=== PATIENT | male | born 1970 ===

== ENCOUNTER 2018-02-07 23:56 | Inpatient (IN) | payer OTHER ==
[2018-02-08 05:21] LABS: Bacteria,Urine 1+ /HPF (Negative); Bilirubin,Urine NEG (Negative); Blood,Urine LG (Negative); Color,Urine Yellow (Yellow); Urobilinogen,Urine < 2.0 mg/dL (<2.0)
[2018-02-08 05:22] LABS: Basophils % (Auto) 0.2 % (0.0-1.8); Eosinophils % (Auto) 0.5 % (0.0-4.3); Hematocrit 39.4 % (35.5-45.6); Hemoglobin 13.2 gm/dl (11.8-15.2); Lymphocytes # (Auto) 0.7 K/mm3 (1.2-5.4); Lymphocytes % (Auto) 10.3 % (13.4-35.0); Mean Corpuscular HGB Conc 34 % (32-34); Mean Corpuscular Hemoglobin 28 pg (28-32); Mean Corpuscular Volume 85 fl (84-94); Monocytes # (Auto) 0.6 K/mm3 (0.0-0.8); Monocytes % (Auto) 7.8 % (0.0-7.3); Platelet Count 187 K/mm3 (140-440); Red Blood Count 4.66 M/mm3 (3.65-5.03); Red Cell Distribution Width 16.2 % (13.2-15.2)
[2018-02-08 05:23] LABS: Protein,Urine >500 mg/dL (Negative); RBC,Urine > 182.0 /HPF (0.0-6.0)
[2018-02-08 06:26] LABS: Albumin 3.9 g/dL (3.9-5); Calcium 8.5 mg/dL (8.4-10.2)
[2018-02-08] MEDS ORDERED: ZOFRAN IV ONE (09:16)
[2018-02-08] MEDS ORDERED: NACL 0.9% 1000 ML 1,000 ML IV ONE (09:16)
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
[2018-02-08] MEDS: ROCEPHIN/NS 2 GM/100 ML 2 GM/100 ML BAG IV ONE ×2 (09:58→10:00)
--- NOTE | 2018-02-08 10:02 | Ultrasound Report ---
ULTRASOUND RENAL BILATERAL HISTORY: Acute renal injury. TECHNIQUE: transabdominal ultrasound with color Doppler interrogation. COMPARISON: none. FINDINGS: The kidneys are normal size, contour and position. There is increased renal cortical echotexture bilaterally consistent with nonspecific renal parenchymal disease. Corticomedullary differentiation is preserved. No evidence for cystic disease, mass, nephrolithiasis, hydronephrosis or perinephric fluid. The views of the bladder and the region of the ureters appear normal. IMPRESSION: Renal parenchymal disease.
[2018-02-08] MEDS ORDERED: SODIUM CHLORIDE FLUSH SYRINGE 10 ML IV PRN (10:51)
[2018-02-08] MEDS ORDERED: TYLENOL PO PRN (10:51)
--- NOTE | 2018-02-08 10:51 | History and Physical Report ---
History of Present Illness Date of examination: 02/08/18 Date of admission: 02/08/18 Chief complaint: N/V, abd pain History of present illness: This is a 47-year-old male presents with chief complaint of nausea and vomiting that has persisted over the past 24 hours. Patient reports vomitus of gastric contents. Patient also reported hematuria yesterday but less prominent today. Patient denies any fever or chills. No cough, like symptoms. No headache or visual disturbances. Patient does report abdominal discomfort with radiation to his lower back. Patient denies any dysuria or frequency. Past History Past Medical History: hypertension, hyperlipidemia Past Surgical History: No surgical history Social history: no significant social history Family history: no significant family history Medications and Allergies Allergies Allergy/AdvReac Type Severity Reaction Status Date / Time No Known Allergies Allergy Unverified 02/08/18 03:37 Home Medications Medication Instructions Recorded Confirmed Last Taken Type Amlodipine Besylate [Norvasc] 10 mg PO QDAY 02/08/18 02/08/18 02/07/18 History Ibuprofen [Ibu] 800 mg PO TID 02/08/18 02/08/18 02/07/18 History Simvastatin [Zocor] 40 mg PO DAILY 02/08/18 02/08/18 02/07/18 History Active Meds: Active Medications Sodium Chloride (Nacl 0.9% 1000 Ml) 1,000 mls @ 125 mls/hr IV DIRECT EVELIO Review of Systems All systems: negative Exam - Constitutional Vitals: Temp Pulse Resp BP Pulse Ox 98.9 F 92 H 20 141/89 98 02/08/18 07:31 02/08/18 07:31 02/08/18 07:31 02/08/18 07:31 02/08/18 07:31 General appearance: Present: no acute distress, well-nourished - EENT Eyes: Present: PERRL ENT: hearing intact, clear oral mucosa - Neck Neck: Present: supple, normal ROM - Respiratory Respiratory effort: normal Respiratory: bilateral: CTA - Cardiovascular Heart Sounds: Present: S1 & S2. Absent: rub, click - Extremities Extremities: pulses symmetrical, No edema Peripheral Pulses: within normal limits - Abdominal General gastrointestinal: Present: soft, non-tender, non-distended, normal bowel sounds Male genitourinary: Present: normal - Integumentary Integumentary: Present: clear, warm, dry - Musculoskeletal Musculoskeletal: gait normal, strength equal bilaterally - Psychiatric Psychiatric: appropriate mood/affect, intact judgment & insight - Neurologic Neurologic: CNII-XII intact, moves all extremities Results - Labs CBC & Chem 7: 02/08/18 05:03 02/08/18 05:03 Labs: Laboratory Last Values WBC 7.2 K/mm3 (4.5-11.0) 02/08/18 05:03 RBC 4.66 M/mm3 (3.65-5.03) 02/08/18 05:03 Hgb 13.2 gm/dl (11.8-15.2) 02/08/18 05:03 Hct 39.4 % (35.5-45.6) 02/08/18 05:03 MCV 85 fl (84-94) 02/08/18 05:03 MCH 28 pg (28-32) 02/08/18 05:03 MCHC 34 % (32-34) 02/08/18 05:03 RDW 16.2 % (13.2-15.2) H 02/08/18 05:03 Plt Count 187 K/mm3 (140-440) 02/08/18 05:03 Lymph % (Auto) 10.3 % (13.4-35.0) L 02/08/18 05:03 [place] % (Auto) 7.8 % (0.0-7.3) H 02/08/18 05:03 Eos % (Auto) 0.5 % (0.0-4.3) 02/08/18 05:03 Baso % (Auto) 0.2 % (0.0-1.8) 02/08/18 05:03 Lymph # 0.7 K/mm3 (1.2-5.4) L 02/08/18 05:03 [place] # 0.6 K/mm3 (0.0-0.8) 02/08/18 05:03 Eos # 0.0 K/mm3 (0.0-0.4) 02/08/18 05:03 Baso # 0.0 K/mm3 (0.0-0.1) 02/08/18 05:03 Seg Neutrophils % 81.2 % (40.0-70.0) H 02/08/18 05:03 Seg Neutrophils # 5.8 K/mm3 (1.8-7.7) 02/08/18 05:03 Sodium 138 mmol/L (137-145) 02/08/18 05:03 Potassium 3.6 mmol/L (3.6-5.0) 02/08/18 05:03 Chloride 98.6 mmol/L (98-107) 02/08/18 05:03 Carbon Dioxide 18 mmol/L (22-30) L 02/08/18 05:03 Anion Gap 25 mmol/L 02/08/18 05:03 BUN 50 mg/dL (9-20) H 02/08/18 05:03 Creatinine 10.4 mg/dL (0.8-1.5) H 02/08/18 05:03 Estimated GFR 5 ml/min 02/08/18 05:03 BUN/Creatinine Ratio 5 % 02/08/18 05:03 Glucose 119 mg/dL (75-100) H 02/08/18 05:03 Calcium 8.5 mg/dL (8.4-10.2) 02/08/18 05:03 Total Bilirubin 0.30 mg/dL (0.1-1.2) 02/08/18 05:03 AST 28 units/L (5-40) 02/08/18 05:03 ALT 20 units/L (7-56) 02/08/18 05:03 Alkaline Phosphatase 57 units/L (35-129) 02/08/18 05:03 Total Protein 7.1 g/dL (6.3-8.2) 02/08/18 05:03 Albumin 3.9 g/dL (3.9-5) 02/08/18 05:03 Albumin/Globulin Ratio 1.2 % 02/08/18 05:03 Lipase 16 units/L (13-60) 02/08/18 05:03 Urine Color Yellow (Yellow) 02/08/18 04:54 Urine Turbidity Slightly-cloudy (Clear) 02/08/18 04:54 Urine pH 6.0 (5.0-7.0) 02/08/18 04:54 Ur Specific [place] 1.007 (1.003-1.030) 02/08/18 04:54 Urine Protein >500 mg/dL (Negative) 02/08/18 04:54 Urine Glucose (UA) Neg mg/dL (Negative) 02/08/18 04:54 Urine Ketones Neg mg/dL (Negative) 02/08/18 04:54 Urine Blood Lg (Negative) 02/08/18 04:54 Urine Nitrite Neg (Negative) 02/08/18 04:54 Urine Bilirubin Neg (Negative) 02/08/18 04:54 Urine Urobilinogen < 2.0 mg/dL (<2.0) 02/08/18 04:54 Ur Leukocyte Esterase Mod (Negative) 02/08/18 04:54 Urine WBC (Auto) 50.0 /HPF (0.0-6.0) H 02/08/18 04:54 Urine RBC (Auto) > 182.0 /HPF (0.0-6.0) 02/08/18 04:54 U Epithel Cells (Auto) < 1.0 /HPF (0-13.0) 02/08/18 04:54 Urine Bacteria (Auto) 1+ /HPF (Negative) 02/08/18 04:54 Assessment and Plan Assessment and plan: Acute renal failure. Patient has a significantly elevated creatinine at 10.4. We will consult nephrology for further evaluation. Renal ultrasound has been ordered by ER physician. We'll also order CT of the abdomen and pelvis for further evaluation. Continue IV fluid hydration for now. Urinary tract infection. Patient with 50 WBCs on urinalysis. We will start Rocephin IV daily. Hematuria. CT of the abdomen and pelvis. Nephrology consultation pending. Consider urology evaluation. Abdominal pain. CT of the abdomen and pelvis. Hypertension. Resume antihypertensive medications. Persistent nausea and vomiting. Continue supportive care with IV fluid hydration and antibiotics.
--- NOTE | 2018-02-08 13:34 | Cat Scan Report ---
FINAL REPORT EXAM: CT ABDOMEN PELVIS WO CON HISTORY: ARF, flank, abd pain TECHNIQUE: CT examination of the ABDOMEN without IV contrast CT examination of the PELVIS without IV contrast PRIORS: None. FINDINGS: Normal noncontrast appearance of the liver, the gallbladder, adrenals, pancreas, and spleen. Normal caliber abdominal aorta and IVC. The normal-appearing kidney and visible left ureter. Nonspecific slight perinephric fat stranding on the right. No right renal calculus. Slight right hydronephrosis. 2 x 2 mm calculus in the distal right ureter at the level of the pelvic inlet. Very small fat containing umbilical hernia. No inguinal hernia. No retroperitoneal adenopathy. No evidence of mesenteric mass. Normal-appearing stomach and duodenum. No small bowel distention in the abdomen and pelvis. Slight prominence of the prostate gland with mass effect on the urinary bladder base. Otherwise normal-appearing urinary bladder. No definite seminal vesicle abnormality. Normal-appearing rectum and sigmoid colon. No gross ascites, free air, or colonic distention. Normal-appearing cecum and terminal ileum. Appendix not visualized. No pericecal inflammation. Scattered prominence of stool in the colon may reflect mild constipation. IMPRESSION: 2 x 2 mm calculus in the right ureter at the level of the pelvic inlet with slight right hydronephrosis Right perinephric fat stranding may be postobstructive edema. Differential includes right pyelonephritis Slight prominence of the prostate gland with mass effect on the urinary bladder base Scattered prominence of stool may reflect mild constipation
[2018-02-08] MEDS: PERCOCET 5/325 PO PRN ×2 (14:41→23:02)
[2018-02-08] MEDS: NACL 0.9% 1000 ML 1,000 ML IV SCH ×2 (14:41→23:02)
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
[2018-02-08] MEDS: ZOFRAN IV PRN ×2 (16:33→23:01)
[2018-02-08 21:27] LABS: Chloride, Urine 36.8 mmolL (110-250); Potassium, Urine 8.61 mmol/L
[2018-02-08] MEDS: HEPARIN SUB-Q SCH (23:01)
[2018-02-08] MEDS: SODIUM CHLORIDE FLUSH SYRINGE 10 ML IV SCH (23:01)
[2018-02-09 00:09] LABS: Uric Acid 14.2 mg/dL (3.5-7.6)
[2018-02-09 05:26] LABS: Basophils % (Auto) 0.2 % (0.0-1.8); Eosinophils # (Auto) 0.1 K/mm3 (0.0-0.4); Eosinophils % (Auto) 0.9 % (0.0-4.3); Hematocrit 37.5 % (35.5-45.6); Hemoglobin 12.5 gm/dl (11.8-15.2); Lymphocytes # (Auto) 1.1 K/mm3 (1.2-5.4); Lymphocytes % (Auto) 16.6 % (13.4-35.0); Mean Corpuscular HGB Conc 33 % (32-34); Mean Corpuscular Hemoglobin 28 pg (28-32); Mean Corpuscular Volume 84 fl (84-94); Monocytes # (Auto) 0.7 K/mm3 (0.0-0.8); Monocytes % (Auto) 10.2 % (0.0-7.3); Platelet Count 179 K/mm3 (140-440); Red Blood Count 4.46 M/mm3 (3.65-5.03)
[2018-02-09 05:42] LABS: Calcium 7.7 mg/dL (8.4-10.2)
[2018-02-09] MEDS ORDERED: MIRALAX 3350 PO ONE ×2 (06:04→10:00)
[2018-02-09] MEDS: ZOFRAN IV PRN ×2 (08:19→21:03)
--- NOTE | 2018-02-09 09:27 | Progress Note ---
Subjective Interval history: Patient was seen today for follow-up on multiple renal related issues Events of this hospitalization noted Worsening renal function Severe hyperuricemia hyperphosphatemia metabolic acidosis despite hydration Creatinine kinase under 1000, Patient denies having any chest pain pressure or shortness of breath Vitals labs intake output medications were reviewed Social history: Reviewed Allergies: Reviewed Family history: Reviewed Physical examination HEENT: Oral mucosa moist no pallor or icterus Neck: Supple no JVD Chest: Clear to auscultation anteriorly CVS: Regular rate and rhythm S1 and S2 heard Abdomen: Soft nontender no suprapubic masses no organomegaly appreciable Extremity: Dry skin less than 1+ peripheral edema Musculoskeletal: No joint effusion noted in knees and ankle Neurological: Alert awake Dermatology: No petechial rashes Psychiatry: No evidence of any agitation and aggression noted Assessment and plan Acute kidney injury: Worsening renal function patient symptomatic with nausea vomiting, continue with hydration Patient needs initiation of renal replacement therapy which will be done today with central venous catheter had a long discussion with patient about the pros and cons of therapy he is willing to proceed with that Metabolic acidosis: Requires correction, hemodialysis will help Hyperuricemia severe 14.2 uric acid, will need monitoring significant proteinuria, ,pyuria as well as hematuria, pending serological workup, possibility of RPGN needs to be ruled out Would like to give him at least 2-3 days of styloid while we are continuing with the workup His renal prognosis is guarded to poor at this time Kidney ultrasonogram: Shows bilateral increased echogenicity somewhat worrisome for underlying chronic kidney disease Severe hyperphosphatemia No evidence to suggest any significant rhabdomyolysis Etiology of renal failure clearly remains undefined at this time pending serological workup Patient possibly will also require kidney biopsy during this admission and I did discuss with him about that Patient has very poor comprehension of his overall health I took extensive amount of time to educated the patient about all his renal related issues need for dialysis, he does have very small stone and very mild hydronephrosis I am still skeptical about his overall prognosis with his renal failure Patient was adequately counseled and educated regarding multiple renal related issues Pertinent lab findings were discussed with patient, patient does exhibit good understanding of renal issues We'll continue to follow and make recommendation from renal standpoint Objective - Vital Signs Vital signs: Vital Signs - 12hr 02/09/18 02/09/18 00:00 05:50 Temperature 99.5 F 99.1 F Pulse Rate 86 87 Respiratory 20 20 Rate Blood Pressure 134/84 161/74 O2 Sat by Pulse 95 96 Oximetry - Lab 02/09/18 04:29 02/09/18 04:29 Most recent lab results Calcium 7.7 mg/dL (8.4-10.2) L 02/09/18 04:29 Phosphorus 7.30 mg/dL (2.5-4.5) H 02/08/18 21:47 Magnesium 3.10 mg/dL (1.7-2.3) H 02/08/18 21:47 Urine Sodium 66 mmol/L 02/08/18 10:51
--- NOTE | 2018-02-09 09:40 | Progress Note ---
Assessment and Plan Assessment and plan: Right ureteral stone with right hydronephrosis. CT abdomen and pelvis reveals 2 x 2 millimeter ureteral stone with right hydronephrosis. Urology has been consulted. Acute renal failure. Renal ultrasound revealed bilateral increased echogenicity somewhat worrisome for underlying chronic kidney disease. However , as above, obstructive uropathy also playing a role in renal failure. Nephrology following. Urinary tract infection. Patient with 50 WBCs on urinalysis. Continue Rocephin IV daily. Follow blood and urine cultures Hypertension. Resume antihypertensive medications. Persistent nausea and vomiting. Improved. Continue supportive care with IV fluid hydration and antiemetics History Interval history: No new issues overnight Hospitalist Physical - Constitutional Vitals: Temp Pulse Resp BP Pulse Ox 99.1 F 87 20 161/74 96 02/09/18 05:50 02/09/18 05:50 02/09/18 05:50 02/09/18 05:50 02/09/18 05:50 General appearance: Present: no acute distress, well-nourished - EENT Eyes: Present: PERRL, EOM intact ENT: hearing intact, clear oral mucosa, dentition normal - Neck Neck: Present: supple, normal ROM - Respiratory Respiratory effort: normal Respiratory: bilateral: CTA - Cardiovascular Rhythm: regular Heart Sounds: Present: S1 & S2. Absent: gallop, rub - Extremities Extremities: no ischemia, No edema, Full ROM - Abdominal General gastrointestinal: soft, non-tender, non-distended, normal bowel sounds - Integumentary Integumentary: Present: clear, warm, dry - Neurologic Neurologic: CNII-XII intact, moves all extremities Results - Labs CBC & Chem 7: 02/09/18 04:29 02/09/18 04:29 Labs: Laboratory Last Values WBC 6.3 K/mm3 (4.5-11.0) 02/09/18 04:29 RBC 4.46 M/mm3 (3.65-5.03) 02/09/18 04:29 Hgb 12.5 gm/dl (11.8-15.2) 02/09/18 04:29 Hct 37.5 % (35.5-45.6) 02/09/18 04:29 MCV 84 fl (84-94) 02/09/18 04:29 MCH 28 pg (28-32) 02/09/18 04:29 MCHC 33 % (32-34) 02/09/18 04:29 RDW 16.0 % (13.2-15.2) H 02/09/18 04:29 Plt Count 179 K/mm3 (140-440) 02/09/18 04:29 Lymph % (Auto) 16.6 % (13.4-35.0) 02/09/18 04:29 [place] % (Auto) 10.2 % (0.0-7.3) H 02/09/18 04:29 Eos % (Auto) 0.9 % (0.0-4.3) 02/09/18 04:29 Baso % (Auto) 0.2 % (0.0-1.8) 02/09/18 04:29 Lymph # 1.1 K/mm3 (1.2-5.4) L 02/09/18 04:29 [place] # 0.7 K/mm3 (0.0-0.8) 02/09/18 04:29 Eos # 0.1 K/mm3 (0.0-0.4) 02/09/18 04:29 Baso # 0.0 K/mm3 (0.0-0.1) 02/09/18 04:29 Seg Neutrophils % 72.1 % (40.0-70.0) H 02/09/18 04:29 Seg Neutrophils # 4.6 K/mm3 (1.8-7.7) 02/09/18 04:29 Sodium 141 mmol/L (137-145) 02/09/18 04:29 Potassium 3.8 mmol/L (3.6-5.0) 02/09/18 04:29 Chloride 104.6 mmol/L (98-107) 02/09/18 04:29 Carbon Dioxide 18 mmol/L (22-30) L 02/09/18 04:29 Anion Gap 22 mmol/L 02/09/18 04:29 BUN 54 mg/dL (9-20) H 02/09/18 04:29 Creatinine 12.0 mg/dL (0.8-1.5) H 02/09/18 04:29 Estimated GFR 5 ml/min 02/09/18 04:29 BUN/Creatinine Ratio 5 % 02/09/18 04:29 Glucose 88 mg/dL (75-100) 02/09/18 04:29 Uric Acid 14.2 mg/dL (3.5-7.6) H 02/08/18 21:47 Calcium 7.7 mg/dL (8.4-10.2) L 02/09/18 04:29 Phosphorus 7.30 mg/dL (2.5-4.5) H 02/08/18 21:47 Magnesium 3.10 mg/dL (1.7-2.3) H 02/08/18 21:47 Total Bilirubin 0.30 mg/dL (0.1-1.2) 02/08/18 05:03 AST 28 units/L (5-40) 02/08/18 05:03 ALT 20 units/L (7-56) 02/08/18 05:03 Alkaline Phosphatase 57 units/L (35-129) 02/08/18 05:03 Total Creatine Kinase 667 units/L (55-170) H 02/08/18 21:47 Total Protein 7.1 g/dL (6.3-8.2) 02/08/18 05:03 Albumin 3.9 g/dL (3.9-5) 02/08/18 05:03 Albumin/Globulin Ratio 1.2 % 02/08/18 05:03 Lipase 16 units/L (13-60) 02/08/18 05:03 Urine Color Yellow (Yellow) 02/08/18 04:54 Urine Turbidity Slightly-cloudy (Clear) 02/08/18 04:54 Urine pH 6.0 (5.0-7.0) 02/08/18 04:54 Ur Specific [place] 1.007 (1.003-1.030) 02/08/18 04:54 Urine Protein >500 mg/dL (Negative) 02/08/18 04:54 Urine Glucose (UA) Neg mg/dL (Negative) 02/08/18 04:54 Urine Ketones Neg mg/dL (Negative) 02/08/18 04:54 Urine Blood Lg (Negative) 02/08/18 04:54 Urine Nitrite Neg (Negative) 02/08/18 04:54 Urine Bilirubin Neg (Negative) 02/08/18 04:54 Urine Urobilinogen < 2.0 mg/dL (<2.0) 02/08/18 04:54 Ur Leukocyte Esterase Mod (Negative) 02/08/18 04:54 Urine WBC (Auto) 50.0 /HPF (0.0-6.0) H 02/08/18 04:54 Urine RBC (Auto) > 182.0 /HPF (0.0-6.0) 02/08/18 04:54 U Epithel Cells (Auto) < 1.0 /HPF (0-13.0) 02/08/18 04:54 Urine Bacteria (Auto) 1+ /HPF (Negative) 02/08/18 04:54 Urine Sodium 66 mmol/L 02/08/18 10:51 Urine Potassium 8.61 mmol/L 02/08/18 10:51 Urine Chloride 36.8 mmolL (110-250) L 02/08/18 10:51
[2018-02-09 09:58] LABS: Amphetamine Screen,Urine PRESUMPTIVE NEGATIVE; Benzodiazepines Screen,Urine PRESUMPTIVE NEGATIVE; Cannabinoid Screen,Urine PRESUMPTIVE NEGATIVE; Cocaine Screen,Urine PRESUMPTIVE NEGATIVE; Methadone Screen,Urine PRESUMPTIVE NEGATIVE; Opiate Screen,Urine PRESUMPTIVE NEGATIVE
[2018-02-09] MEDS ORDERED: LOVENOX SUB-Q SCH (10:00)
[2018-02-09] MEDS: HEPARIN SUB-Q SCH ×2 (10:13→21:57)
[2018-02-09] MEDS: ROCEPHIN/NS 1 GM/50 ML 1 GM/50 ML BAG IV SCH (10:13)
[2018-02-09] MEDS: SODIUM CHLORIDE FLUSH SYRINGE 10 ML IV SCH ×2 (10:14→21:04)
[2018-02-09 11:00] LABS: Creatinine,Urine 84.9 mg/dL (0.1-20.0)
[2018-02-09] MEDS ORDERED: NACL 0.9% 100 ML IV PRN ×2 (11:00→14:43)
[2018-02-09] MEDS ORDERED: SUBLIMAZE IV PRN (11:39)
--- NOTE | 2018-02-09 11:39 | Anesthesia Consultation ---
Anesthesia Consult and Med Hx Date of service: 02/09/18 - Airway Anesthetic Teeth Evaluation: Good ROM Head & Neck: Adequate Mental/Hyoid Distance: Adequate Mallampati Class: Class III Intubation Access Assessment: Possibly Difficult - Pulmonary Exam CTA: Yes - Cardiac Exam Cardiac Exam: RRR - Pre-Operative Health Status ASA Pre-Surgery Classification: ASA3 Proposed Anesthetic Plan: General - Pulmonary Hx Smoking: No Hx Asthma: No Hx Respiratory Symptoms: No SOB: No - Cardiovascular System Hx Hypertension: Yes Hx Heart Attack/AMI: No (>4 mets exercise tolerance) - Central Nervous System Hx Seizures: No CVA: No - Gastrointestinal Hx Gastroesophageal Reflux Disease: No - Endocrine Hx Renal Disease: Yes (ARF unknwon etiology w/ met acidosis. Plan to start ENAMEL BUFFER in coming days.) Hx Liver Disease: No Hx Insulin Dependent Diabetes: No Hx Thyroid Disease: No - Hematic Hx Anemia: No - Other Systems Hx Obesity: No - Additional Comments Anesthesia Medical History Comments: Admitted with N/V acute renal failure currently with unknown etiology. 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 Potassium level today wnl. Right hydronephrosis on CT so plan cysto/stone removal today. Does report N/V this morning so will plan GETA w/ RSI.
--- NOTE | 2018-02-09 11:42 | Anesthesia Day of Surgery ---
Anesthesia Day of Surgery - Day of Surgery Patient Examined: Yes Patient H&P Reviewed: Yes Patient is NPO: Yes (NPO liquid (water) since 02/09/19 0500.)
[2018-02-09] MEDS ORDERED: QUELICIN ONE (11:50)
[2018-02-09] MEDS ORDERED: XYLOCAINE MPF 2% ONE (11:50)
[2018-02-09] MEDS ORDERED: DIPRIVAN 10 MG/ML IV ONE (11:51)
[2018-02-09] MEDS ORDERED: VERSED IV NR (12:00)
[2018-02-09] MEDS: NACL 0.9% 1000 ML 1,000 ML IV SCH (12:09)
--- NOTE | 2018-02-09 12:51 | Consultation ---
History of Present Illness - Reason for Consult Consult date: 02/09/18 - History of Present Illness This is a 47-year-old male presents with chief complaint of nausea and vomiting that has persisted over the past 24 hours. Patient reports vomitus of gastric contents. Patient also reported hematuria yesterday but less prominent today. Patient denies any fever or chills. No cough, like symptoms. No headache or visual disturbances. Patient does report abdominal discomfort with radiation to his lower back. Patient denies any dysuria or frequency. NO HX OF STONES family at bedside ABD SOFT CTAP ---2MM RT URETERAL STONE WITH HYDRO A/P RT URETERAL STONE CYSTO TODAY Past History Past Medical History: hypertension, hyperlipidemia Past Surgical History: No surgical history Social history: no significant social history Family history: no significant family history Medications and Allergies Allergies Allergy/AdvReac Type Severity Reaction Status Date / Time No Known Allergies Allergy Unverified 02/08/18 03:37 Home Medications Medication Instructions Recorded Confirmed Last Taken Type Amlodipine Besylate [Norvasc] 10 mg PO QDAY 02/08/18 02/08/18 02/07/18 History Ibuprofen [Ibu] 800 mg PO TID 02/08/18 02/08/18 02/07/18 History Simvastatin [Zocor] 40 mg PO DAILY 02/08/18 02/08/18 02/07/18 History Active Meds: Active Medications Acetaminophen (Tylenol) 650 mg PO Q4H PRN PRN Reason: Pain MILD(1-3)/Fever >100.5/RODRIGUEZ Fentanyl (Sublimaze) 50 mcg IV Q10MIN PRN PRN Reason: Pain , Severe (7-10) Stop: 02/09/18 23:59 Heparin Sodium (Porcine) (Heparin) 5,000 unit SUB-Q Q12HR EVELIO Last Admin: 02/09/18 10:13 Dose: Not Given Sodium Chloride (Nacl 0.9% 1000 Ml) 1,000 mls @ 200 mls/hr IV DIRECT EVELIO Last Admin: 02/08/18 23:02 Dose: 125 mls/hr Ceftriaxone Sodium (Rocephin/Ns 1 Gm/50 Ml) 1 gm in 50 mls @ 100 mls/hr IV Q24HR EVELIO; Protocol Last Admin: 02/09/18 10:13 Dose: 100 mls/hr Sodium Chloride (Nacl 0.9%) 100 mls @ 999 mls/hr IV ANI PRN PRN Reason: Hypotension Methylprednisolone Sodium Succinate 250 mg/ Sodium Chloride 100 mls @ 200 mls/ hr IV Q24HR EVELIO Stop: 02/11/18 11:00 Sodium Chloride (Nacl 0.9% 1000 Ml) 1,000 mls @ 42 mls/hr IV DIRECT EVELIO Last Admin: 02/09/18 12:09 Dose: 42 mls/hr Midazolam HCl (Versed) 2 mg IV PREOP NR Stop: 02/09/18 23:59 Ondansetron HCl (Zofran) 4 mg IV Q8H PRN PRN Reason: Nausea And Vomiting Last Admin: 02/09/18 08:19 Dose: 4 mg Oxycodone/Acetaminophen (Percocet 5/325) 1 tab PO Q6H PRN PRN Reason: Pain, Moderate (4-6) Last Admin: 02/08/18 23:02 Dose: 1 tab Sodium Chloride (Sodium Chloride Flush Syringe 10 Ml) 10 ml IV BID EVELIO Last Admin: 02/09/18 10:14 Dose: 10 ml Sodium Chloride (Sodium Chloride Flush Syringe 10 Ml) 10 ml IV PRN PRN PRN Reason: LINE FLUSH Exam - Constitutional Vitals: Temp Pulse Resp BP Pulse Ox 99.1 F 87 20 161/74 96 02/09/18 05:50 02/09/18 05:50 02/09/18 05:50 02/09/18 05:50 02/09/18 05:50 Results - Labs CBC & Chem 7: 02/09/18 04:29 02/09/18 04:29 Labs: Abnormal lab results 02/08/18 02/08/18 02/09/18 Range/Units 10:51 21:47 04:29 RDW 16.0 H (13.2-15.2) % [place] % (Auto) 10.2 H (0.0-7.3) % Lymph # 1.1 L (1.2-5.4) K/mm3 Seg Neutrophils % 72.1 H (40.0-70.0) % Carbon Dioxide (22-30) mmol/L BUN (9-20) mg/dL Creatinine (0.8-1.5) mg/dL Uric Acid 14.2 H (3.5-7.6) mg/dL Calcium (8.4-10.2) mg/dL Phosphorus 7.30 H (2.5-4.5) mg/dL Magnesium 3.10 H (1.7-2.3) mg/dL Total Creatine Kinase 667 H (55-170) units/L Urine Creatinine (0.1-20.0) mg/dL Urine Chloride 36.8 L (110-250) mmolL Urine Total Protein (5-11.8) mg/dL 02/09/18 02/09/18 Range/Units 04:29 Unknown RDW (13.2-15.2) % [place] % (Auto) (0.0-7.3) % Lymph # (1.2-5.4) K/mm3 Seg Neutrophils % (40.0-70.0) % Carbon Dioxide 18 L (22-30) mmol/L BUN 54 H (9-20) mg/dL Creatinine 12.0 H (0.8-1.5) mg/dL Uric Acid (3.5-7.6) mg/dL Calcium 7.7 L (8.4-10.2) mg/dL Phosphorus (2.5-4.5) mg/dL Magnesium (1.7-2.3) mg/dL Total Creatine Kinase (55-170) units/L Urine Creatinine 84.9 H (0.1-20.0) mg/dL Urine Chloride (110-250) mmolL Urine Total Protein 49 H (5-11.8) mg/dL
[2018-02-09] MEDS ORDERED: WATER FOR IRRIG STERILE IR ONE (13:30)
--- NOTE | 2018-02-09 13:40 | Post Operative Note ---
Date of procedure: 02/09/18 Pre-op diagnosis: rt ureteral stone Post-op diagnosis: same Procedure: cysto, rt ureteroscopy, stent with external string Anesthesia: CRYS Surgeon: DEVIKA GARCES Estimated blood loss: minimal Pathology: none Condition: stable (cipro & norco on chart) Disposition: PACU
[2018-02-09] MEDS ORDERED: ZOFRAN ONE (14:04)
[2018-02-09] MEDS ORDERED: SUBLIMAZE ONE (14:20)
[2018-02-09] MEDS ORDERED: VERSED ONE (14:20)
[2018-02-09] MEDS ORDERED: XYLOCAINE 1%/ EPI 1:100,000 INFILTRATI ONE (14:21)
[2018-02-09] MEDS ORDERED: HEPARIN/NS 5000 UNIT/500ML(CATH LAB) 500 ML IR ONE (14:21)
[2018-02-09] MEDS: HEPARIN 10,000 UNITS/10 ML ONE ×3 (14:38→14:43)
--- NOTE | 2018-02-09 14:50 | Operative Report ---
Operative Report Operative Report: Exam: Ultrasound and fluoroscopic guided placement of Vas-Cath Clinical indication: Patient with acute renal failure requiring dialysis access Date: 02/09/2018 Procedure: Following an explanation of the risks, benefits and alternatives; written informed consent was obtained. The patient was brought to the angiographic suite and placed in supine position on the examination table. Initial ultrasound evaluation of his neck demonstrated a patent right internal jugular vein. The patient's right neck and chest wall were prepped and draped in usual sterile fashion. 1% lidocaine was used for anesthesia. Guidance, the right internal jugular vein was cannulated with a 7 cm 18-gauge needle. A 0.035 guidewire was advanced into the IVC to document intravenous positioning. The needle was removed and following serial dilation, a 15 cm precursor Vas-Cath was placed over the guidewire and advanced to position the tip in the proximal right atrium. The guidewire was removed. The catheter was securely fastened of the skin surface using 2-0 Ethilon suture and a sterile dressing applied. The catheter flushed and aspirated easily was locked with appropriate volumes of heparin. Patient tolerated the procedure well. There were no immediate post procedure complications. Sedation was not utilize secondary to patient's sedation from his prior has had previous cardiopulmonary monitoring was utilized. Impression: Ultrasound and fluoroscopic guided placement of Vas-Cath via the right internal jugular vein.
[2018-02-09 16:41] LABS: Hepatitis B Core IgM Non-Reactive (NonReactive); Hepatitis B Surface Antigen Non-Reactive (Negative); Hepatitis C Virus Antibody Non-Reactive (NonReactive)
[2018-02-09] MEDS ORDERED: NACL 0.9 (PRIMING MACHINE ONLY DIALYSIS) MC ONE (17:33)
[2018-02-09] MEDS: SOLU MEDROL IV SCH (18:34)
[2018-02-09] MEDS: NACL 0.9% IV SCH (18:34)
[2018-02-09] MEDS ORDERED: MIRALAX 3350 PO PRN (19:37)
[2018-02-09] MEDS: NORVASC PO SCH (21:02)
[2018-02-10 05:42] LABS: Hematocrit 43.1 % (35.5-45.6); Hemoglobin 14.6 gm/dl (11.8-15.2); Mean Corpuscular HGB Conc 34 % (32-34); Mean Corpuscular Hemoglobin 28 pg (28-32); Mean Corpuscular Volume 83 fl (84-94); Platelet Count 204 K/mm3 (140-440); Red Blood Count 5.18 M/mm3 (3.65-5.03); Red Cell Distribution Width 15.9 % (13.2-15.2)
[2018-02-10 05:58] LABS: Calcium 8.6 mg/dL (8.4-10.2)
--- NOTE | 2018-02-10 07:49 | Fluoroscopy Report ---
FLUOROSCOPY RETROGRADE UROGRAPHY: HISTORY: Right ureteral stone. FINDINGS: Fluoroscopy was provided by radiology during retrograde urography by the urologist. 7 fluoroscopic images were captured. There is adequate filling of the ureters and intrarenal collecting systems with no filling defects or anatomic abnormalities identified. A right ureteral stent was placed which is in good position on the final image. Please correlate with the procedural report if needed. IMPRESSION: Retrograde pyelograms within normal limits. Right ureteral stent placement.
[2018-02-10 08:20] LABS: Basophils % (Manual) 0 % (0.0-1.8); Eosinophils % (Manual) 0 % (0.0-4.3); Total Cells Counted 100
[2018-02-10 08:22] LABS: Platelet Estimate Consistent w Auto
[2018-02-10 08:23] LABS: Anisocytosis 1+; Poikilocytosis Few
[2018-02-10 08:24] LABS: Ovalocytes 1+
[2018-02-10] MEDS: NORVASC PO SCH (09:22)
[2018-02-10] MEDS: SODIUM CHLORIDE FLUSH SYRINGE 10 ML IV SCH ×2 (09:23→22:15)
[2018-02-10] MEDS: HEPARIN SUB-Q SCH ×2 (09:24→22:16)
[2018-02-10] MEDS: SOLU MEDROL IV SCH (09:24)
[2018-02-10] MEDS: NACL 0.9% IV SCH (09:24)
--- NOTE | 2018-02-10 09:45 | Progress Note ---
Subjective Interval history: Patient was seen today for follow-up on multiple renal related issues Events of this hospitalization noted Status post dialysis catheter placement Has had first dialysis treatment yesterday Feeling much better Status post retrograde pyelogram Vitals labs intake output medications were reviewed Social history: Reviewed Allergies: Reviewed Family history: Reviewed Physical examination HEENT: Oral mucosa moist no pallor or icterus Neck: Supple no JVD Chest: Clear to auscultation anteriorly CVS: Regular rate and rhythm S1 and S2 heard Abdomen: Soft nontender no suprapubic masses no organomegaly appreciable Extremity: Dry skin less than 1+ peripheral edema Musculoskeletal: No joint effusion noted in knees and ankle Neurological: Alert awake Dermatology: No petechial rashes Psychiatry: No evidence of any agitation and aggression noted Assessment and plan Acute kidney injury: Suspicion for RPGN, patient has been initiated on steroidal as well as hemodialysis pending serologies likely will require a kidney biopsy on Wednesday, we would like to correct his uremia first to reduce the risk of bleeding Will arrange for hemodialysis today again Patient admitted with acute renal failure of unexplained etiology, 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 but there is no comment on cortical thickness would like to know from radiology, if his kidneys shrunken small we may not consider biopsy in his case, if cordis is a relatively preserved patient does deserve a kidney biopsy Patient is an extremely poor historian and has very poor understanding about his overall health but is doing much better with ongoing counseling and education Status post retrograde pyelogram for stone and hydronephrosis Patient does have hematuria proteinuria pyuria which is somewhat worrisome I have educated him about the need for kidney biopsy which can be arranged on Wednesday In the meantime follow-up on the pending labs and serologies Renal prognosis guarded to poor patient has been made aware We'll continue to follow and make recommendation from renal standpoint Objective - Vital Signs Vital signs: Vital Signs - 12hr 02/10/18 02/10/18 02/10/18 01:00 05:04 09:22 Temperature 98.3 F 98.5 F Pulse Rate 83 76 96 H Respiratory 16 16 Rate Blood Pressure 119/79 162/98 145/84 O2 Sat by Pulse 97 99 Oximetry - Lab 02/10/18 04:46 02/10/18 04:46 Most recent lab results Calcium 8.6 mg/dL (8.4-10.2) 02/10/18 04:46 Phosphorus 7.30 mg/dL (2.5-4.5) H 02/08/18 21:47 Magnesium 3.10 mg/dL (1.7-2.3) H 02/08/18 21:47 Urine Creatinine 84.9 mg/dL (0.1-20.0) H 02/09/18 Unknown Urine Sodium 66 mmol/L 02/08/18 10:51 Urine Total Protein 49 mg/dL (5-11.8) H 02/09/18 Unknown
[2018-02-10] MEDS ORDERED: NACL 0.9% 100 ML IV PRN (09:46)
[2018-02-10] MEDS: ROCEPHIN/NS 1 GM/50 ML 1 GM/50 ML BAG IV SCH (10:26)
[2018-02-10] MEDS: PERCOCET 5/325 PO PRN (10:27)
--- NOTE | 2018-02-10 11:03 | Progress Note ---
Assessment and Plan Assessment and plan: Right ureteral stone with right hydronephrosis. CT abdomen and pelvis reveals 2 x 2 millimeter ureteral stone with right hydronephrosis. Patient is status post cystoscopy, right ureteroscopy and stent placement. Acute renal failure/acute kidney injury. Patient with suspicion for RPGN. Patient has been initiated on steroids as well as hemodialysis. Serologies are pending. Patient will likely need kidney biopsy which can be arranged on Wednesday. Nephrology following. Urinary tract infection. Patient with 50 WBCs on urinalysis. Continue Rocephin IV daily. Follow blood and urine cultures Hypertension. Resume antihypertensive medications. Persistent nausea and vomiting. Improved. Continue supportive care with IV fluid hydration and antiemetics Constipation. Patient reports no bowel movement in the past 4-5 days. Add lactulose. History Interval history: No new issues overnight Hospitalist Physical - Constitutional Vitals: Temp Pulse Resp BP Pulse Ox 98.5 F 96 H 16 145/84 99 02/10/18 05:04 02/10/18 09:22 02/10/18 05:04 02/10/18 09:22 02/10/18 05:04 General appearance: Present: no acute distress, well-nourished - EENT Eyes: Present: PERRL, EOM intact ENT: hearing intact, clear oral mucosa, dentition normal - Neck Neck: Present: supple, normal ROM - Respiratory Respiratory effort: normal Respiratory: bilateral: CTA - Cardiovascular Rhythm: regular Heart Sounds: Present: S1 & S2. Absent: gallop, rub - Extremities Extremities: no ischemia, No edema, Full ROM - Abdominal General gastrointestinal: soft, non-tender, non-distended, normal bowel sounds - Integumentary Integumentary: Present: clear, warm, dry - Neurologic Neurologic: CNII-XII intact, moves all extremities Results - Labs CBC & Chem 7: 02/10/18 04:46 02/10/18 04:46 Labs: Laboratory Last Values WBC 5.0 K/mm3 (4.5-11.0) 02/10/18 04:46 RBC 5.18 M/mm3 (3.65-5.03) H 02/10/18 04:46 Hgb 14.6 gm/dl (11.8-15.2) 02/10/18 04:46 Hct 43.1 % (35.5-45.6) 02/10/18 04:46 MCV 83 fl (84-94) L 02/10/18 04:46 MCH 28 pg (28-32) 02/10/18 04:46 MCHC 34 % (32-34) 02/10/18 04:46 RDW 15.9 % (13.2-15.2) H 02/10/18 04:46 Plt Count 204 K/mm3 (140-440) 02/10/18 04:46 Lymph % (Auto) 16.6 % (13.4-35.0) 02/09/18 04:29 [place] % (Auto) 10.2 % (0.0-7.3) H 02/09/18 04:29 Eos % (Auto) 0.9 % (0.0-4.3) 02/09/18 04:29 Baso % (Auto) 0.2 % (0.0-1.8) 02/09/18 04:29 Lymph # 1.1 K/mm3 (1.2-5.4) L 02/09/18 04:29 [place] # 0.7 K/mm3 (0.0-0.8) 02/09/18 04:29 Eos # 0.1 K/mm3 (0.0-0.4) 02/09/18 04:29 Baso # 0.0 K/mm3 (0.0-0.1) 02/09/18 04:29 Add Manual Diff Complete 02/10/18 04:46 Total Counted 100 02/10/18 04:46 Seg Neutrophils % Tank As[employer]er 02/10/18 04:46 Seg Neuts % (Manual) 93.0 % (40.0-70.0) H 02/10/18 04:46 Band Neutrophils % 0 % 02/10/18 04:46 Lymphocytes % (Manual) 6.0 % (13.4-35.0) L 02/10/18 04:46 Reactive Lymphs % (Man) 0 % 02/10/18 04:46 Monocytes % (Manual) 1.0 % (0.0-7.3) 02/10/18 04:46 Eosinophils % (Manual) 0 % (0.0-4.3) 02/10/18 04:46 Basophils % (Manual) 0 % (0.0-1.8) 02/10/18 04:46 Metamyelocytes % 0 % 02/10/18 04:46 Myelocytes % 0 % 02/10/18 04:46 Promyelocytes % 0 % 02/10/18 04:46 Blast Cells % 0 % 02/10/18 04:46 Nucleated RBC % Not Reportable 02/10/18 04:46 Seg Neutrophils # 4.6 K/mm3 (1.8-7.7) 02/09/18 04:29 Seg Neutrophils # Man 4.7 K/mm3 (1.8-7.7) 02/10/18 04:46 Band Neutrophils # 0.0 K/mm3 02/10/18 04:46 Lymphocytes # (Manual) 0.3 K/mm3 (1.2-5.4) L 02/10/18 04:46 Abs React Lymphs (Man) 0.0 K/mm3 02/10/18 04:46 Monocytes # (Manual) 0.1 K/mm3 (0.0-0.8) 02/10/18 04:46 Eosinophils # (Manual) 0.0 K/mm3 (0.0-0.4) 02/10/18 04:46 Basophils # (Manual) 0.0 K/mm3 (0.0-0.1) 02/10/18 04:46 Metamyelocytes # 0.0 K/mm3 02/10/18 04:46 Myelocytes # 0.0 K/mm3 02/10/18 04:46 Promyelocytes # 0.0 K/mm3 02/10/18 04:46 Blast Cells # 0.0 K/mm3 02/10/18 04:46 WBC Morphology Not Reportable 02/10/18 04:46 Hypersegmented Neuts Not Reportable 02/10/18 04:46 Hyposegmented Neuts Not Reportable 02/10/18 04:46 Hypogranular Neuts Not Reportable 02/10/18 04:46 Smudge Cells Not Reportable 02/10/18 04:46 Toxic Granulation Not Reportable 02/10/18 04:46 Toxic Vacuolation Not Reportable 02/10/18 04:46 Dohle Bodies Not Reportable 02/10/18 04:46 Pelger-Huet Anomaly Not Reportable 02/10/18 04:46 Skye Rods Not Reportable 02/10/18 04:46 Platelet Estimate Consistent w auto 02/10/18 04:46 Clumped Platelets Not Reportable 02/10/18 04:46 Plt Clumps, EDTA Not Reportable 02/10/18 04:46 Large Platelets Not Reportable 02/10/18 04:46 Giant Platelets Not Reportable 02/10/18 04:46 Platelet Satelliting Not Reportable 02/10/18 04:46 Plt Morphology Comment Not Reportable 02/10/18 04:46 RBC Morphology Not Reportable 02/10/18 04:46 Dimorphic RBCs Not Reportable 02/10/18 04:46 Polychromasia Not Reportable 02/10/18 04:46 Hypochromasia Not Reportable 02/10/18 04:46 Poikilocytosis Few 02/10/18 04:46 Anisocytosis 1+ 02/10/18 04:46 Microcytosis Rare 02/10/18 04:46 Macrocytosis Not Reportable 02/10/18 04:46 Spherocytes Not Reportable 02/10/18 04:46 Pappenheimer Bodies Not Reportable 02/10/18 04:46 Sickle Cells Not Reportable 02/10/18 04:46 Target Cells Not Reportable 02/10/18 04:46 Tear Drop Cells Not Reportable 02/10/18 04:46 Ovalocytes 1+ 02/10/18 04:46 Helmet Cells Not Reportable 02/10/18 04:46 [place] Bodies Not Reportable 02/10/18 04:46 [place] Rings Not Reportable 02/10/18 04:46 Alex Cells Not Reportable 02/10/18 04:46 Bite Cells Not Reportable 02/10/18 04:46 Crenated Cell Not Reportable 02/10/18 04:46 Elliptocytes Not Reportable 02/10/18 04:46 Acanthocytes (Spur) Not Reportable 02/10/18 04:46 Rouleaux Not Reportable 02/10/18 04:46 Hemoglobin C Crystals Not Reportable 02/10/18 04:46 Schistocytes Not Reportable 02/10/18 04:46 Malaria parasites Not Reportable 02/10/18 04:46 Richard Bodies Not Reportable 02/10/18 04:46 Hem Pathologist Commnt No 02/10/18 04:46 Sodium 139 mmol/L (137-145) 02/10/18 04:46 Potassium 4.2 mmol/L (3.6-5.0) 02/10/18 04:46 Chloride 98.6 mmol/L (98-107) 02/10/18 04:46 Carbon Dioxide 25 mmol/L (22-30) D 02/10/18 04:46 Anion Gap 20 mmol/L 02/10/18 04:46 BUN 33 mg/dL (9-20) H 02/10/18 04:46 Creatinine 8.0 mg/dL (0.8-1.5) H 02/10/18 04:46 Estimated GFR 7 ml/min 02/10/18 04:46 BUN/Creatinine Ratio 4 % 02/10/18 04:46 Glucose 137 mg/dL (75-100) H 02/10/18 04:46 Uric Acid 14.2 mg/dL (3.5-7.6) H 02/08/18 21:47 Calcium 8.6 mg/dL (8.4-10.2) 02/10/18 04:46 Phosphorus 7.30 mg/dL (2.5-4.5) H 02/08/18 21:47 Magnesium 3.10 mg/dL (1.7-2.3) H 02/08/18 21:47 Total Bilirubin 0.30 mg/dL (0.1-1.2) 02/08/18 05:03 AST 28 units/L (5-40) 02/08/18 05:03 ALT 20 units/L (7-56) 02/08/18 05:03 Alkaline Phosphatase 57 units/L (35-129) 02/08/18 05:03 Total Creatine Kinase 667 units/L (55-170) H 02/08/18 21:47 Total Protein 7.1 g/dL (6.3-8.2) 02/08/18 05:03 Albumin 3.9 g/dL (3.9-5) 02/08/18 05:03 Albumin/Globulin Ratio 1.2 % 02/08/18 05:03 Lipase 16 units/L (13-60) 02/08/18 05:03 Urine Color Yellow (Yellow) 02/08/18 04:54 Urine Turbidity Slightly-cloudy (Clear) 02/08/18 04:54 Urine pH 6.0 (5.0-7.0) 02/08/18 04:54 Ur Specific [place] 1.007 (1.003-1.030) 02/08/18 04:54 Urine Protein >500 mg/dL (Negative) 02/08/18 04:54 Urine Glucose (UA) Neg mg/dL (Negative) 02/08/18 04:54 Urine Ketones Neg mg/dL (Negative) 02/08/18 04:54 Urine Blood Lg (Negative) 02/08/18 04:54 Urine Nitrite Neg (Negative) 02/08/18 04:54 Urine Bilirubin Neg (Negative) 02/08/18 04:54 Urine Urobilinogen < 2.0 mg/dL (<2.0) 02/08/18 04:54 Ur Leukocyte Esterase Mod (Negative) 02/08/18 04:54 Urine WBC (Auto) 50.0 /HPF (0.0-6.0) H 02/08/18 04:54 Urine RBC (Auto) > 182.0 /HPF (0.0-6.0) 02/08/18 04:54 U Epithel Cells (Auto) < 1.0 /HPF (0-13.0) 02/08/18 04:54 Urine Bacteria (Auto) 1+ /HPF (Negative) 02/08/18 04:54 Urine Creatinine 84.9 mg/dL (0.1-20.0) H 02/09/18 Unknown Urine Sodium 66 mmol/L 02/08/18 10:51 Urine Potassium 8.61 mmol/L 02/08/18 10:51 Urine Chloride 36.8 mmolL (110-250) L 02/08/18 10:51 Urine Total Protein 49 mg/dL (5-11.8) H 02/09/18 Unknown Urine Opiates Screen Presumptive negative 02/09/18 Unknown Urine Methadone Screen Presumptive negative 02/09/18 Unknown Ur Barbiturates Screen Presumptive negative 02/09/18 Unknown Ur Phencyclidine Scrn Presumptive negative 02/09/18 Unknown Ur Amphetamines Screen Presumptive negative 02/09/18 Unknown U Benzodiazepines Scrn Presumptive negative 02/09/18 Unknown Urine Cocaine Screen Presumptive negative 02/09/18 Unknown U Marijuana (THC) Screen Presumptive negative 02/09/18 Unknown Drugs of Abuse Note Disclamer 02/09/18 Unknown Hep Bs Antigen Non-reactive (Negative) 09/19/18 15:35 Hep B Core IgM Ab Non-reactive (NonReactive) 02/09/18 15:35 Hepatitis C Antibody Non-reactive (NonReactive) 02/09/18 15:35
[2018-02-10] MEDS ORDERED: NACL 0.9 (PRIMING MACHINE ONLY DIALYSIS) MC ONE (12:13)
[2018-02-10] MEDS: CEPHULAC PO PRN (15:22)
[2018-02-10] MEDS: NACL 0.9% 1000 ML 1,000 ML IV SCH (20:15)
[2018-02-11] MEDS ORDERED: THORAZINE PO ONE (01:20)
[2018-02-11 05:14] LABS: Hematocrit 40.3 % (35.5-45.6); Hemoglobin 13.8 gm/dl (11.8-15.2); Mean Corpuscular HGB Conc 34 % (32-34); Mean Corpuscular Hemoglobin 28 pg (28-32); Mean Corpuscular Volume 82 fl (84-94); Red Blood Count 4.89 M/mm3 (3.65-5.03); Red Cell Distribution Width 15.9 % (13.2-15.2)
[2018-02-11 05:17] LABS: Platelet Count 154 K/mm3 (140-440)
[2018-02-11 05:24] LABS: Calcium 8.3 mg/dL (8.4-10.2)
[2018-02-11 06:29] LABS: Band Neutrophils # (Manual) 0.9 K/mm3; Basophils % (Manual) 0 % (0.0-1.8); Eosinophils % (Manual) 0 % (0.0-4.3); Total Cells Counted 100
[2018-02-11 06:31] LABS: Anisocytosis 1+; Platelet Estimate Consistent w Auto; Poikilocytosis Few
--- NOTE | 2018-02-11 10:07 | Progress Note ---
Assessment and Plan Assessment and plan: Right ureteral stone with right hydronephrosis. CT abdomen and pelvis reveals 2 x 2 millimeter ureteral stone with right hydronephrosis. Patient is status post cystoscopy, right ureteroscopy and stent placement. Acute renal failure/acute kidney injury. Improving. Patient with suspicion for RPGN. Patient has been initiated on steroids as well as hemodialysis. Serologies are pending. Patient will likely need kidney biopsy which can be arranged on Wednesday. Nephrology following. Urinary tract infection. Patient with 50 WBCs on urinalysis. Continue Rocephin IV daily. Follow blood and urine cultures Hypertension. Resume antihypertensive medications. Persistent nausea and vomiting. Improved. Continue supportive care with IV fluid hydration and antiemetics Constipation. Cont. lactulose History Interval history: No new issues overnight Hospitalist Physical - Constitutional Vitals: Temp Pulse Resp BP Pulse Ox 98.8 F 74 17 137/76 98 02/11/18 05:30 02/11/18 09:26 02/11/18 09:26 02/11/18 05:30 02/11/18 09:26 General appearance: Present: no acute distress, well-nourished - EENT Eyes: Present: PERRL, EOM intact ENT: hearing intact, clear oral mucosa, dentition normal - Neck Neck: Present: supple, normal ROM - Respiratory Respiratory effort: normal Respiratory: bilateral: CTA - Cardiovascular Rhythm: regular Heart Sounds: Present: S1 & S2. Absent: gallop, rub - Extremities Extremities: no ischemia, No edema, Full ROM - Abdominal General gastrointestinal: soft, non-tender, non-distended, normal bowel sounds - Integumentary Integumentary: Present: clear, warm, dry - Neurologic Neurologic: CNII-XII intact, moves all extremities Results - Labs CBC & Chem 7: 02/11/18 04:50 02/11/18 04:50 Labs: Laboratory Last Values WBC 12.2 K/mm3 (4.5-11.0) H 02/11/18 04:50 RBC 4.89 M/mm3 (3.65-5.03) 02/11/18 04:50 Hgb 13.8 gm/dl (11.8-15.2) 02/11/18 04:50 Hct 40.3 % (35.5-45.6) 02/11/18 04:50 MCV 82 fl (84-94) L 02/11/18 04:50 MCH 28 pg (28-32) 02/11/18 04:50 MCHC 34 % (32-34) 02/11/18 04:50 RDW 15.9 % (13.2-15.2) H 02/11/18 04:50 Plt Count 154 K/mm3 (140-440) 02/11/18 04:50 Lymph % (Auto) 16.6 % (13.4-35.0) 02/09/18 04:29 [place] % (Auto) 10.2 % (0.0-7.3) H 02/09/18 04:29 Eos % (Auto) 0.9 % (0.0-4.3) 02/09/18 04:29 Baso % (Auto) 0.2 % (0.0-1.8) 02/09/18 04:29 Lymph # 1.1 K/mm3 (1.2-5.4) L 02/09/18 04:29 [place] # 0.7 K/mm3 (0.0-0.8) 02/09/18 04:29 Eos # 0.1 K/mm3 (0.0-0.4) 02/09/18 04:29 Baso # 0.0 K/mm3 (0.0-0.1) 02/09/18 04:29 Add Manual Diff Complete 02/11/18 04:50 Total Counted 100 02/11/18 04:50 Seg Neutrophils % Vice President [employer] Engineering 02/11/18 04:50 Seg Neuts % (Manual) 84.0 % (40.0-70.0) H 02/11/18 04:50 Band Neutrophils % 7.0 % 02/11/18 04:50 Lymphocytes % (Manual) 8.0 % (13.4-35.0) L 02/11/18 04:50 Reactive Lymphs % (Man) 0 % 02/11/18 04:50 Monocytes % (Manual) 1.0 % (0.0-7.3) 02/11/18 04:50 Eosinophils % (Manual) 0 % (0.0-4.3) 02/11/18 04:50 Basophils % (Manual) 0 % (0.0-1.8) 02/11/18 04:50 Metamyelocytes % 0 % 02/11/18 04:50 Myelocytes % 0 % 02/11/18 04:50 Promyelocytes % 0 % 02/11/18 04:50 Blast Cells % 0 % 02/11/18 04:50 Nucleated RBC % Not Reportable 02/11/18 04:50 Seg Neutrophils # 4.6 K/mm3 (1.8-7.7) 02/09/18 04:29 Seg Neutrophils # Man 10.2 K/mm3 (1.8-7.7) H 02/11/18 04:50 Band Neutrophils # 0.9 K/mm3 02/11/18 04:50 Lymphocytes # (Manual) 1.0 K/mm3 (1.2-5.4) L 02/11/18 04:50 Abs React Lymphs (Man) 0.0 K/mm3 02/11/18 04:50 Monocytes # (Manual) 0.1 K/mm3 (0.0-0.8) 02/11/18 04:50 Eosinophils # (Manual) 0.0 K/mm3 (0.0-0.4) 02/11/18 04:50 Basophils # (Manual) 0.0 K/mm3 (0.0-0.1) 02/11/18 04:50 Metamyelocytes # 0.0 K/mm3 02/11/18 04:50 Myelocytes # 0.0 K/mm3 02/11/18 04:50 Promyelocytes # 0.0 K/mm3 02/11/18 04:50 Blast Cells # 0.0 K/mm3 02/11/18 04:50 WBC Morphology Not Reportable 02/11/18 04:50 Hypersegmented Neuts Not Reportable 02/11/18 04:50 Hyposegmented Neuts Not Reportable 02/11/18 04:50 Hypogranular Neuts Not Reportable 02/11/18 04:50 Smudge Cells Not Reportable 02/11/18 04:50 Toxic Granulation Not Reportable 02/11/18 04:50 Toxic Vacuolation Not Reportable 02/11/18 04:50 Dohle Bodies Not Reportable 02/11/18 04:50 Pelger-Huet Anomaly Not Reportable 02/11/18 04:50 Skye Rods Not Reportable 02/11/18 04:50 Platelet Estimate Consistent w auto 02/11/18 04:50 Clumped Platelets Not Reportable 02/11/18 04:50 Plt Clumps, EDTA Not Reportable 02/11/18 04:50 Large Platelets Not Reportable 02/11/18 04:50 Giant Platelets Not Reportable 02/11/18 04:50 Platelet Satelliting Not Reportable 02/11/18 04:50 Plt Morphology Comment Not Reportable 02/11/18 04:50 RBC Morphology Not Reportable 02/11/18 04:50 Dimorphic RBCs Not Reportable 02/11/18 04:50 Polychromasia Not Reportable 02/11/18 04:50 Hypochromasia Not Reportable 02/11/18 04:50 Poikilocytosis Few 02/11/18 04:50 Anisocytosis 1+ 02/11/18 04:50 Microcytosis Few 02/11/18 04:50 Macrocytosis Not Reportable 02/11/18 04:50 Spherocytes Not Reportable 02/11/18 04:50 Pappenheimer Bodies Not Reportable 02/11/18 04:50 Sickle Cells Not Reportable 02/11/18 04:50 Target Cells Not Reportable 02/11/18 04:50 Tear Drop Cells Not Reportable 02/11/18 04:50 Ovalocytes Not Reportable 02/11/18 04:50 Helmet Cells Not Reportable 02/11/18 04:50 [place] Bodies Not Reportable 02/11/18 04:50 [place] Rings Not Reportable 02/11/18 04:50 [place] Cells Not Reportable 02/11/18 04:50 Bite Cells Not Reportable 02/11/18 04:50 Crenated Cell Not Reportable 02/11/18 04:50 Elliptocytes Not Reportable 02/11/18 04:50 Acanthocytes (Spur) Not Reportable 02/11/18 04:50 Rouleaux Not Reportable 02/11/18 04:50 Hemoglobin C Crystals Not Reportable 02/11/18 04:50 Schistocytes Not Reportable 02/11/18 04:50 Malaria parasites Not Reportable 02/11/18 04:50 Richard Bodies Not Reportable 02/11/18 04:50 Hem Pathologist Commnt No 02/11/18 04:50 Sodium 136 mmol/L (137-145) L 02/11/18 04:50 Potassium 4.5 mmol/L (3.6-5.0) 02/11/18 04:50 Chloride 100.2 mmol/L (98-107) 02/11/18 04:50 Carbon Dioxide 21 mmol/L (22-30) L 02/11/18 04:50 Anion Gap 19 mmol/L 02/11/18 04:50 BUN 31 mg/dL (9-20) H 02/11/18 04:50 Creatinine 5.0 mg/dL (0.8-1.5) H 02/11/18 04:50 Estimated GFR 13 ml/min 02/11/18 04:50 BUN/Creatinine Ratio 6 % 02/11/18 04:50 Glucose 125 mg/dL (75-100) H 02/11/18 04:50 Uric Acid 14.2 mg/dL (3.5-7.6) H 02/08/18 21:47 Calcium 8.3 mg/dL (8.4-10.2) L 02/11/18 04:50 Phosphorus 7.30 mg/dL (2.5-4.5) H 02/08/18 21:47 Magnesium 3.10 mg/dL (1.7-2.3) H 02/08/18 21:47 Total Bilirubin 0.30 mg/dL (0.1-1.2) 02/08/18 05:03 AST 28 units/L (5-40) 02/08/18 05:03 ALT 20 units/L (7-56) 02/08/18 05:03 Alkaline Phosphatase 57 units/L (35-129) 02/08/18 05:03 Total Creatine Kinase 667 units/L (55-170) H 02/08/18 21:47 Total Protein 7.1 g/dL (6.3-8.2) 02/08/18 05:03 Albumin 3.9 g/dL (3.9-5) 02/08/18 05:03 Albumin/Globulin Ratio 1.2 % 02/08/18 05:03 Lipase 16 units/L (13-60) 02/08/18 05:03 Urine Color Yellow (Yellow) 02/08/18 04:54 Urine Turbidity Slightly-cloudy (Clear) 02/08/18 04:54 Urine pH 6.0 (5.0-7.0) 02/08/18 04:54 Ur Specific [place] 1.007 (1.003-1.030) 02/08/18 04:54 Urine Protein >500 mg/dL (Negative) 02/08/18 04:54 Urine Glucose (UA) Neg mg/dL (Negative) 02/08/18 04:54 Urine Ketones Neg mg/dL (Negative) 02/08/18 04:54 Urine Blood Lg (Negative) 02/08/18 04:54 Urine Nitrite Neg (Negative) 02/08/18 04:54 Urine Bilirubin Neg (Negative) 02/08/18 04:54 Urine Urobilinogen < 2.0 mg/dL (<2.0) 02/08/18 04:54 Ur Leukocyte Esterase Mod (Negative) 02/08/18 04:54 Urine WBC (Auto) 50.0 /HPF (0.0-6.0) H 02/08/18 04:54 Urine RBC (Auto) > 182.0 /HPF (0.0-6.0) 02/08/18 04:54 U Epithel Cells (Auto) < 1.0 /HPF (0-13.0) 02/08/18 04:54 Urine Bacteria (Auto) 1+ /HPF (Negative) 02/08/18 04:54 Urine Creatinine 84.9 mg/dL (0.1-20.0) H 02/09/18 Unknown Urine Sodium 66 mmol/L 02/08/18 10:51 Urine Potassium 8.61 mmol/L 02/08/18 10:51 Urine Chloride 36.8 mmolL (110-250) L 02/08/18 10:51 Urine Total Protein 49 mg/dL (5-11.8) H 02/09/18 Unknown Urine Opiates Screen Presumptive negative 02/09/18 Unknown Urine Methadone Screen Presumptive negative 02/09/18 Unknown Ur Barbiturates Screen Presumptive negative 02/09/18 Unknown Ur Phencyclidine Scrn Presumptive negative 02/09/18 Unknown Ur Amphetamines Screen Presumptive negative 02/09/18 Unknown U Benzodiazepines Scrn Presumptive negative 02/09/18 Unknown Urine Cocaine Screen Presumptive negative 02/09/18 Unknown U Marijuana (THC) Screen Presumptive negative 02/09/18 Unknown Drugs of Abuse Note Disclamer 02/09/18 Unknown Complement C3 179 mg/dL (82-185) 02/08/18 21:48 Complement C4 31 mg/dL (15-53) 02/08/18 21:48 Hep Bs Antigen Non-reactive (Negative) 02/09/18 15:35 Hep B Core IgM Ab Non-reactive (NonReactive) 02/09/18 15:35 Hepatitis C Antibody Non-reactive (NonReactive) 02/09/18 15:35
[2018-02-11] MEDS: SODIUM CHLORIDE FLUSH SYRINGE 10 ML IV SCH ×2 (10:25→23:12)
[2018-02-11] MEDS: NORVASC PO SCH (10:25)
[2018-02-11] MEDS: ROCEPHIN/NS 1 GM/50 ML 1 GM/50 ML BAG IV SCH (10:26)
[2018-02-11] MEDS: HEPARIN SUB-Q SCH ×2 (10:33→21:24)
--- NOTE | 2018-02-11 11:01 | Progress Note ---
Subjective Interval history: Patient was seen today for follow-up on multiple renal related issues Events of this hospitalization noted Status post dialysis catheter placement Has had first dialysis treatment yesterday Feeling much better Status post retrograde pyelogram Vitals labs intake output medications were reviewed Social history: Reviewed Allergies: Reviewed Family history: Reviewed Physical examination HEENT: Oral mucosa moist no pallor or icterus Neck: Supple no JVD Chest: Clear to auscultation anteriorly CVS: Regular rate and rhythm S1 and S2 heard Abdomen: Soft nontender no suprapubic masses no organomegaly appreciable Extremity: Dry skin less than 1+ peripheral edema Musculoskeletal: No joint effusion noted in knees and ankle Neurological: Alert awake Dermatology: No petechial rashes Psychiatry: No evidence of any agitation and aggression noted Assessment and plan Acute kidney injury, 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 and has had 2 dialysis treatment consider hemodialysis treatment tomorrow morning Considered for kidney biopsy next week patient has been adequately counseled and educated regarding this Continue with Solu-Medrol for another day Have also advised the nurse to give him reading material about acute renal failure, dialysis, kidney biopsy I have educated him at length about all his renal-related issues His urine protein is more than 500 protein creatinine ratio 49/84 His renal function is improving satisfactorily Metabolic acidosis mild corrected sodium bicarbonate Objective uropathy status post retrograde study Patient does appear to have hematuria proteinuria pyuria: Requires kidney biopsy , will also order for urine culture just in case Follow-up on the pending labs consider kidney biopsy and Wednesday We'll continue to follow and make recommendation from renal standpoint Objective - Vital Signs Vital signs: Vital Signs - 12hr 02/11/18 02/11/18 02/11/18 05:30 09:26 10:25 Temperature 98.8 F Pulse Rate 79 74 Pulse Rate [ 74 Apical] Respiratory 16 17 Rate Blood Pressure 137/76 145/84 O2 Sat by Pulse 97 98 Oximetry - Lab 02/11/18 04:50 02/11/18 04:50 Most recent lab results Calcium 8.3 mg/dL (8.4-10.2) L 02/11/18 04:50 Phosphorus 7.30 mg/dL (2.5-4.5) H 02/08/18 21:47 Magnesium 3.10 mg/dL (1.7-2.3) H 02/08/18 21:47 Urine Creatinine 84.9 mg/dL (0.1-20.0) H 02/09/18 Unknown Urine Sodium 66 mmol/L 02/08/18 10:51 Urine Total Protein 49 mg/dL (5-11.8) H 02/09/18 Unknown
[2018-02-11] MEDS: SOLU MEDROL IV SCH (11:37)
[2018-02-11] MEDS: NACL 0.9% IV SCH (11:37)
[2018-02-11] MEDS: NACL 0.9% 1000 ML 1,000 ML IV SCH (21:24)
[2018-02-11] MEDS: CEPHULAC PO PRN (21:24)
[2018-02-11] MEDS: PERCOCET 5/325 PO PRN (21:24)
[2018-02-11 23:12] LABS: Myeloperoxidase Antibody <1.0 AI (<1.0)
[2018-02-12 05:25] LABS: Hematocrit 38.3 % (35.5-45.6); Hemoglobin 12.8 gm/dl (11.8-15.2); Mean Corpuscular HGB Conc 34 % (32-34); Mean Corpuscular Hemoglobin 28 pg (28-32); Mean Corpuscular Volume 84 fl (84-94); Platelet Count 198 K/mm3 (140-440); Red Blood Count 4.58 M/mm3 (3.65-5.03); Red Cell Distribution Width 15.9 % (13.2-15.2)
[2018-02-12 06:04] LABS: Calcium 8.3 mg/dL (8.4-10.2)
[2018-02-12 06:27] LABS: Anisocytosis 1+; Band Neutrophils # (Manual) 0.6 K/mm3; Basophils % (Manual) 0 % (0.0-1.8); Eosinophils % (Manual) 0 % (0.0-4.3); Myelocytes # (Manual) 0.2 K/mm3; Total Cells Counted 100
--- NOTE | 2018-02-12 09:22 | Event Note ---
Date: 02/12/18 24h events reviewed. Chart reviewed. Patient requested 2nd nephrology opinion yesterday. Patient confirms to me that he would like a second opinion. Discussed with Dr. Powell who will consult Dr. Osman's group. Contacted Dr. Sinha who is covering today - updated re: case and patient's request of second opinion. He will see patient today.
[2018-02-12] MEDS ORDERED: DELTASONE PO SCH (10:00)
[2018-02-12] MEDS: ROCEPHIN/NS 1 GM/50 ML 1 GM/50 ML BAG IV SCH (10:54)
[2018-02-12] MEDS: SODIUM CHLORIDE FLUSH SYRINGE 10 ML IV SCH (10:55)
[2018-02-12] MEDS: NORVASC PO SCH (10:55)
[2018-02-12] MEDS: HEPARIN SUB-Q SCH (10:55)
--- NOTE | 2018-02-12 11:18 | Progress Note ---
Assessment and Plan Assessment and plan: Right ureteral stone with right hydronephrosis. CT abdomen and pelvis reveals 2 x 2 millimeter ureteral stone with right hydronephrosis. Patient is status post cystoscopy, right ureteroscopy and stent placement. Acute renal failure/acute kidney injury. Improving. Patient with suspicion for RPGN. Patient has been initiated on steroids as well as hemodialysis. Serologies are pending. Patient will likely need kidney biopsy which can be arranged on Wednesday. Nephrology following. Patient wants second opinion with nephrology. Dr. Osman consulted. I discussed the case with Dr. Womack Urinary tract infection. Patient with 50 WBCs on urinalysis. Continue Rocephin IV daily. Follow blood and urine cultures Hypertension. Resume antihypertensive medications. Persistent nausea and vomiting. Improved. Continue supportive care with IV fluid hydration and antiemetics Constipation. Cont. lactulose History Interval history: No new issues overnight. Pt wants 2nd opinion Hospitalist Physical - Constitutional Vitals: Temp Pulse Resp BP Pulse Ox 98.7 F 84 16 154/85 98 02/12/18 05:27 02/12/18 10:55 02/12/18 05:27 02/12/18 10:55 02/12/18 05:27 General appearance: Present: no acute distress, well-nourished - EENT Eyes: Present: PERRL, EOM intact ENT: hearing intact, clear oral mucosa, dentition normal - Neck Neck: Present: supple, normal ROM - Respiratory Respiratory effort: normal Respiratory: bilateral: CTA - Cardiovascular Rhythm: regular Heart Sounds: Present: S1 & S2. Absent: gallop, rub - Extremities Extremities: no ischemia, No edema, Full ROM - Abdominal General gastrointestinal: soft, non-tender, non-distended, normal bowel sounds - Integumentary Integumentary: Present: clear, warm, dry - Neurologic Neurologic: CNII-XII intact, moves all extremities Results - Labs CBC & Chem 7: 02/12/18 04:42 02/12/18 04:42 Labs: Laboratory Last Values WBC 11.7 K/mm3 (4.5-11.0) H 02/12/18 04:42 RBC 4.58 M/mm3 (3.65-5.03) 02/12/18 04:42 Hgb 12.8 gm/dl (11.8-15.2) 02/12/18 04:42 Hct 38.3 % (35.5-45.6) 02/12/18 04:42 MCV 84 fl (84-94) 02/12/18 04:42 MCH 28 pg (28-32) 02/12/18 04:42 MCHC 34 % (32-34) 02/12/18 04:42 RDW 15.9 % (13.2-15.2) H 02/12/18 04:42 Plt Count 198 K/mm3 (140-440) 02/12/18 04:42 Lymph % (Auto) 16.6 % (13.4-35.0) 02/09/18 04:29 [place] % (Auto) 10.2 % (0.0-7.3) H 02/09/18 04:29 Eos % (Auto) 0.9 % (0.0-4.3) 02/09/18 04:29 Baso % (Auto) 0.2 % (0.0-1.8) 02/09/18 04:29 Lymph # 1.1 K/mm3 (1.2-5.4) L 02/09/18 04:29 [place] # 0.7 K/mm3 (0.0-0.8) 02/09/18 04:29 Eos # 0.1 K/mm3 (0.0-0.4) 02/09/18 04:29 Baso # 0.0 K/mm3 (0.0-0.1) 02/09/18 04:29 Add Manual Diff Complete 02/12/18 04:42 Total Counted 100 02/12/18 04:42 Seg Neutrophils % Software [employer] System Specialist 02/12/18 04:42 Seg Neuts % (Manual) 86.0 % (40.0-70.0) H 02/12/18 04:42 Band Neutrophils % 5.0 % 02/12/18 04:42 Lymphocytes % (Manual) 4.0 % (13.4-35.0) L 02/12/18 04:42 Reactive Lymphs % (Man) 0 % 02/12/18 04:42 Monocytes % (Manual) 3.0 % (0.0-7.3) 02/12/18 04:42 Eosinophils % (Manual) 0 % (0.0-4.3) 02/12/18 04:42 Basophils % (Manual) 0 % (0.0-1.8) 02/12/18 04:42 Metamyelocytes % 0 % 02/12/18 04:42 Myelocytes % 2.0 % 02/12/18 04:42 Promyelocytes % 0 % 02/12/18 04:42 Blast Cells % 0 % 02/12/18 04:42 Nucleated RBC % Not Reportable 02/12/18 04:42 Seg Neutrophils # 4.6 K/mm3 (1.8-7.7) 02/09/18 04:29 Seg Neutrophils # Man 10.1 K/mm3 (1.8-7.7) H 02/12/18 04:42 Band Neutrophils # 0.6 K/mm3 02/12/18 04:42 Lymphocytes # (Manual) 0.5 K/mm3 (1.2-5.4) L 02/12/18 04:42 Abs React Lymphs (Man) 0.0 K/mm3 02/12/18 04:42 Monocytes # (Manual) 0.4 K/mm3 (0.0-0.8) 02/12/18 04:42 Eosinophils # (Manual) 0.0 K/mm3 (0.0-0.4) 02/12/18 04:42 Basophils # (Manual) 0.0 K/mm3 (0.0-0.1) 02/12/18 04:42 Metamyelocytes # 0.0 K/mm3 02/12/18 04:42 Myelocytes # 0.2 K/mm3 02/12/18 04:42 Promyelocytes # 0.0 K/mm3 02/12/18 04:42 Blast Cells # 0.0 K/mm3 02/12/18 04:42 WBC Morphology Not Reportable 02/12/18 04:42 Hypersegmented Neuts Not Reportable 02/12/18 04:42 Hyposegmented Neuts Not Reportable 02/12/18 04:42 Hypogranular Neuts Not Reportable 02/12/18 04:42 Smudge Cells Not Reportable 02/12/18 04:42 Toxic Granulation Not Reportable 02/12/18 04:42 Toxic Vacuolation Not Reportable 02/12/18 04:42 Dohle Bodies Not Reportable 02/12/18 04:42 Pelger-Huet Anomaly Not Reportable 02/12/18 04:42 Skye Rods Not Reportable 02/12/18 04:42 Platelet Estimate Appears normal 02/12/18 04:42 Clumped Platelets Not Reportable 02/12/18 04:42 Plt Clumps, EDTA Not Reportable 02/12/18 04:42 Large Platelets Not Reportable 02/12/18 04:42 Giant Platelets Not Reportable 02/12/18 04:42 Platelet Satelliting Not Reportable 02/12/18 04:42 Plt Morphology Comment Not Reportable 02/12/18 04:42 RBC Morphology Not Reportable 02/12/18 04:42 Dimorphic RBCs Not Reportable 02/12/18 04:42 Polychromasia Not Reportable 02/12/18 04:42 Hypochromasia Not Reportable 02/12/18 04:42 Poikilocytosis Not Reportable 02/12/18 04:42 Anisocytosis 1+ 02/12/18 04:42 Microcytosis Not Reportable 02/12/18 04:42 Macrocytosis Not Reportable 02/12/18 04:42 Spherocytes Not Reportable 02/12/18 04:42 Pappenheimer Bodies Not Reportable 02/12/18 04:42 Sickle Cells Not Reportable 02/12/18 04:42 Target Cells Not Reportable 02/12/18 04:42 Tear Drop Cells Not Reportable 02/12/18 04:42 Ovalocytes Not Reportable 02/12/18 04:42 Helmet Cells Not Reportable 02/12/18 04:42 [place] Bodies Not Reportable 02/12/18 04:42 [place] Rings Not Reportable 02/12/18 04:42 Alex Cells Not Reportable 02/12/18 04:42 Bite Cells Not Reportable 02/12/18 04:42 Crenated Cell Not Reportable 02/12/18 04:42 Elliptocytes Not Reportable 02/12/18 04:42 Acanthocytes (Spur) Not Reportable 02/12/18 04:42 Rouleaux Not Reportable 02/12/18 04:42 Hemoglobin C Crystals Not Reportable 02/12/18 04:42 Schistocytes Not Reportable 02/12/18 04:42 Malaria parasites Not Reportable 02/12/18 04:42 Richard Bodies Not Reportable 02/12/18 04:42 Hem Pathologist Commnt No 02/12/18 04:42 Sodium 145 mmol/L (137-145) D 02/12/18 04:42 Potassium 4.2 mmol/L (3.6-5.0) 02/12/18 04:42 Chloride 102.8 mmol/L (98-107) 02/12/18 04:42 Carbon Dioxide 28 mmol/L (22-30) D 02/12/18 04:42 Anion Gap 18 mmol/L 02/12/18 04:42 BUN 42 mg/dL (9-20) H 02/12/18 04:42 Creatinine 4.2 mg/dL (0.8-1.5) H 02/12/18 04:42 Estimated GFR 15 ml/min 02/12/18 04:42 BUN/Creatinine Ratio 10 % 02/12/18 04:42 Glucose 123 mg/dL (75-100) H 02/12/18 04:42 Uric Acid 14.2 mg/dL (3.5-7.6) H 02/08/18 21:47 Calcium 8.3 mg/dL (8.4-10.2) L 02/12/18 04:42 Phosphorus 7.30 mg/dL (2.5-4.5) H 02/08/18 21:47 Magnesium 3.10 mg/dL (1.7-2.3) H 02/08/18 21:47 Total Bilirubin 0.30 mg/dL (0.1-1.2) 02/08/18 05:03 AST 28 units/L (5-40) 02/08/18 05:03 ALT 20 units/L (7-56) 02/08/18 05:03 Alkaline Phosphatase 57 units/L (35-129) 02/08/18 05:03 Total Creatine Kinase 667 units/L (55-170) H 02/08/18 21:47 Total Protein 7.1 g/dL (6.3-8.2) 02/08/18 05:03 Albumin 3.9 g/dL (3.9-5) 02/08/18 05:03 Albumin/Globulin Ratio 1.2 % 02/08/18 05:03 Lipase 16 units/L (13-60) 02/08/18 05:03 Urine Color Yellow (Yellow) 02/08/18 04:54 Urine Turbidity Slightly-cloudy (Clear) 02/08/18 04:54 Urine pH 6.0 (5.0-7.0) 02/08/18 04:54 Ur Specific [place] 1.007 (1.003-1.030) 02/08/18 04:54 Urine Protein >500 mg/dL (Negative) 02/08/18 04:54 Urine Glucose (UA) Neg mg/dL (Negative) 02/08/18 04:54 Urine Ketones Neg mg/dL (Negative) 02/08/18 04:54 Urine Blood Lg (Negative) 02/08/18 04:54 Urine Nitrite Neg (Negative) 02/08/18 04:54 Urine Bilirubin Neg (Negative) 02/08/18 04:54 Urine Urobilinogen < 2.0 mg/dL (<2.0) 02/08/18 04:54 Ur Leukocyte Esterase Mod (Negative) 02/08/18 04:54 Urine WBC (Auto) 50.0 /HPF (0.0-6.0) H 02/08/18 04:54 Urine RBC (Auto) > 182.0 /HPF (0.0-6.0) 02/08/18 04:54 U Epithel Cells (Auto) < 1.0 /HPF (0-13.0) 02/08/18 04:54 Urine Bacteria (Auto) 1+ /HPF (Negative) 02/08/18 04:54 Urine Creatinine 84.9 mg/dL (0.1-20.0) H 02/09/18 Unknown Urine Sodium 66 mmol/L 02/08/18 10:51 Urine Potassium 8.61 mmol/L 02/08/18 10:51 Urine Chloride 36.8 mmolL (110-250) L 02/08/18 10:51 Urine Total Protein 49 mg/dL (5-11.8) H 02/09/18 Unknown Urine Opiates Screen Presumptive negative 02/09/18 Unknown Urine Methadone Screen Presumptive negative 02/09/18 Unknown Ur Barbiturates Screen Presumptive negative 02/09/18 Unknown Ur Phencyclidine Scrn Presumptive negative 02/09/18 Unknown Ur Amphetamines Screen Presumptive negative 02/09/18 Unknown U Benzodiazepines Scrn Presumptive negative 02/09/18 Unknown Urine Cocaine Screen Presumptive negative 02/09/18 Unknown U Marijuana (THC) Screen Presumptive negative 02/09/18 Unknown Drugs of Abuse Note Disclamer 02/09/18 Unknown Proteinase 3 (PR3) Ab <1.0 AI (<1.0) 02/08/18 21:48 Myeloperoxidase Ab <1.0 AI (<1.0) 02/08/18 21:48 Complement C3 179 mg/dL (82-185) 02/08/18 21:48 Complement C4 31 mg/dL (15-53) 02/08/18 21:48 Hep Bs Antigen Non-reactive (Negative) 02/09/18 15:35 Hep B Core IgM Ab Non-reactive (NonReactive) 02/09/18 15:35 Hepatitis C Antibody Non-reactive (NonReactive) 02/09/18 15:35
[2018-02-12 12:42] VITALS: BP 125/75
--- NOTE | 2018-02-12 13:10 | Event Note ---
Date: 02/12/18 Was asked to evaluate patient as a second opinion for nephrology. Discussed and reviewed details of the case with the patient. 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 He mentioned to me that he wishes to go to [facility] for further evaluation. I have called and spoken to Dr. Powell and informed him of the patient's wishes.
[2018-02-12 23:13] LABS: ANA Screen, IFA Negative (Negative)
[2018-02-14 07:18] LABS: Hepatitis A Antibody IgM NonReactive (NonReactive)
== END 2018-02-12 15:10 | disposition left against medical advice (07) | DRG 683 ==
LOC: ED 23:56 → 3A 02-08 10:51
PROVIDERS: ADMIT Hospitalist; ATTEND Hospitalist
PROC: 0T768DZ Dilation of Right Ureter with Intraluminal Device, Via Natural or Artificial Opening Endoscopic (ICD-10-PCS; principal; 2018-02-09)
PROC: BT141ZZ Fluoroscopy of Kidneys, Ureters and Bladder using Low Osmolar Contrast (ICD-10-PCS; 2018-02-09)
PROC: 02H633Z Insertion of Infusion Device into Right Atrium, Percutaneous Approach (ICD-10-PCS; 2018-02-09)
PROC: B2141ZZ Fluoroscopy of Right Heart using Low Osmolar Contrast (ICD-10-PCS; 2018-02-09)
PROC: B244ZZZ Ultrasonography of Right Heart (ICD-10-PCS; 2018-02-09)
PROC: 5A1D70Z Performance of Urinary Filtration, Intermittent, Less than 6 Hours Per Day (ICD-10-PCS; 2018-02-09)
PROC: 5A1D70Z Performance of Urinary Filtration, Intermittent, Less than 6 Hours Per Day (ICD-10-PCS; 2018-02-10)
DX: N17.9 Acute kidney failure, unspecified (principal); E87.2 Acidosis; N13.6 Pyonephrosis; I10 Essential (primary) hypertension; E78.00 Pure hypercholesterolemia, unspecified; E83.39 Other disorders of phosphorus metabolism; E79.0 Hyperuricemia without signs of inflammatory arthritis and tophaceous disease; N01.9 Rapidly progressive nephritic syndrome with unspecified morphologic changes; K59.00 Constipation, unspecified; Z79.899 Other long term (current) drug therapy; Z90.49 Acquired absence of other specified parts of digestive tract; Z53.21 Procedure and treatment not carried out due to patient leaving prior to being seen by health care provider
CPT/HCPCS: 36415; 36556; 74176; 74420; 76770; 76937; 77001; 80048; 80053; 80074; 80307; 81001; 82436; 82550; 82570; 83520; 83690; 83735; 84100; 84133; 84156; 84300; 84550; 85007; 85025; 86021; 86038; 86160; 87040; 87086; 96365; 96375; A4217; C1752; C1758; C1769; C2617; J0330; J0696; J1644; J2250; J2405; J2704; J2930; J3010; J7030; J7512; Q0161; Q9967